=== PATIENT | female | born 1935 | race Caucasian/White ===

== ENCOUNTER → 2017-10-09 | Outpatient (CLI) | payer MEDICARE, OTHER ==
[~2017-10-09] MED LIST: ACET500T68 PO; ALE70 PO; ALP5 PO; ALPR-460 PO; AMLO-1 PO; AMLO-96 PO; ASCO-188 PO; ASP81 PO; ASPI-1471 PO; ASPI81TA94 PO; BLOO-1764 MC; CALC500T42 PO; CEP250 PO; CEPH-13 PO; CEPH250C11 PO; CHOL10005 PO; CHOL200074 PO; CIPR-344 PO; CRAN400T5 PO; ELESTATPT OD; ELESTATPT OP; FAMO20TA28 PO; FLU IM; FLU20 PO; FLU45SYR17 IM; FLU45SYR25 IM ONLY; FLU60SYR30 IM ONLY; FLUO-177 PO; HYDR-2966 PO; HYDR-385 PO; IBUP600T22 PO; ISRA5CAP PO; KETO5DRO OP; KETO5DRO13 OP; LEV88 PO; LEVO88TA45 PO; LOS50 PO; METF-411 PO; METXR500 PO; MULT-820 PO; MULT-865 PO; NITR50CA35 PO; OMEG-11 PO; OMEG500C5 PO; OXYB-13 PO; PHEN-530 PO; PNEU0.5D3 IM; POTA20TA85 PO; POTA20TA94 PO; SIMV-42 PO; SIMV-49 PO; SYSTANEPT OP; SYSTANEPT OU; VALS-25 PO; VALS1TAB6 PO; VITA-200 PO; VITA200C44 PO
[2017-10-09 10:11] LABS: LDL CHOLESTEROL 55 mg/dl
== END ==
LOC: LAB 09:16
PROVIDERS: ATTEND Internal Medicine
DX: E78.00 Pure hypercholesterolemia, unspecified (principal); E11.9 Type 2 diabetes mellitus without complications; I10 Essential (primary) hypertension; E03.9 Hypothyroidism, unspecified
CPT/HCPCS: 36415; 82040; 82247; 82310; 82374; 82435; 82465; 82565; 82947; 83036; 83718; 84075; 84132; 84155; 84295; 84443; 84450; 84460; 84478; 84520

== ENCOUNTER → 2017-12-10 | Outpatient (CLI) | payer MEDICARE, OTHER ==
[~2017-12-10] MED LIST changes: +AMLO-111 PO; -AMLO-96 PO; +CYAN50008 PO; +LOSA-54 PO; -METF-411 PO; +METF-450 PO
--- NOTE | 2017-12-10 14:01 | RADIOLOGY IMAGING REPORT ---
FACILITY: [facility] - [place] PATIENT NAME: Tasia Sanders : 1935 MR: [id number] V: [id number] EXAM DATE: ORDERING PHYSICIAN: SHELLEY PATEL TECHNOLOGIST: Location: [facility] [place] Patient: Tasia Sanders : 1935 Visit/Account:[id number] Date of Sevice: 12/10/2017 DEXA Scan Clinical history: Post menopause. Comparison: DEXA scan from 09/10/2013. LUMBAR SPINE: The bone mineral density (BMD) measured from L1-L4 correlates with a Z-score of 1.7 and a T-score of -0.2 which is NORMAL as defined by the World Health Organization. The corresponding risk of fracture in the lumbar spine is Not increased compared with a young adult reference population. This value h as increased by 2.0 percent since the prior study. More than 5 percent change is considered signific ant. HIP: Femoral Neck: Bone mineral density (BMD) measured in the LEFT femoral neck region correlates with a Z-score 0.7 and a T-score of -1.6 which is osteopenia as defined by the World Health Organization. The correspondin g risk of fracture in the hip is 3-4 times greater compared to a young adult reference population. B one mineral density (BMD) measured in the Femoral Neck region measures 0.809 g/cm2. Total Hip: Bone mineral density (BMD) measured in the LEFT total hip region correlates with a Z-score 0.8 and a T-score of -1.4 which is osteopenia as defined by the World Health Organization. The corresponding r isk of fracture in the hip is 2-3 times greater compared to a young adult reference population. This value has decreased by 7.0 percent since the prior study. More than 5 percent change is considered s ignificant. IMPRESSION: 1. Lumbar spine: Normal. There has been No significant change in the bone mineral density since the previous exam. 2. Left femoral neck and total hip: Osteopenia. There has been a significant decrease in the bone m ineral density of the total hip since the previous exam. The next DEXA scan of this patient should include the following sites: L1-L4 and the left hip. FRAX WHO Fracture Risk Assessment Tool link: <http://www.shef.ac.uk/FRAX/tool.jsp?[email or web address]> PLEASE NOTE: 1) The World Health Organization defines low BMD as follows: T-score Normal > -1 Osteopenia < -1 and > -2.5 Osteoporosis < -2.5 without fractures Established osteoporosis < -2.5 with fractures 2) In general, you may wish to consider: Diagnosis Treatment Follow-up DEXA Normal BMD Prevention 2-3 years Osteopenia Prevention/therapy 1-2 years Osteoporosis Therapy Yearly 3) Fracture risk estimated from the T-score is more accurate for vertebral fractures (often spontane ous) than for hip fractures. Report Dictated By: Camila Lizarraga MD at 12/10/2017 1:53 PM Report E-Signed By: Camila Lizarraga MD at 12/10/2017 1:57 PM WSN:[id number]
--- NOTE | 2017-12-10 16:05 | RADIOLOGY IMAGING REPORT ---
FACILITY: [facility] PATIENT NAME: JONO URIARTE : [id number] MR: [id number] V: [id number] EXAM DATE: [id number] ORDERING PHYSICIAN: SHELLEY PATEL TECHNOLOGIST: Franchesca Wolf PROCEDURE:BILATERAL DIGITAL SCREENING MAMMOGRAM WITH CAD ASSISTED INTERPRETATION & 3D TOMOSYNTHESIS COMPARISON:Prior mammogram 09/10/13. INDICATIONS:SCREENING FINDINGS: Moderately heterogeneous fibroglandular tissue is seen throughout the breasts. The parenchymal pattern has remained stable allowing for difference in mammographic technique & patient positioning. There is no evidence of malignant appearing mass, malignant appearing calcifications or other secondary sign of malignancy in either breast. DIAGNOSTIC CATEGORY 1--NEGATIVE. RECOMMENDATIONS: ROUTINE MAMMOGRAM AND CLINICAL EVALUATION. IMPRESSION: BIRADS 1: Negative. No significant abnormality is seen. Dictated by: Becky Brumfield M.D. on 12/10/2017 at 14:31 Transcribed by: MELINDA on 12/10/2017 at 14:39 Approved by: Becky Brumfield M.D. on 12/10/2017 at 16:04 [facility]
== END ==
LOC: MAMO 01:09
PROVIDERS: ATTEND Internal Medicine
DX: Z12.31 Encounter for screening mammogram for malignant neoplasm of breast (principal); M85.80 Other specified disorders of bone density and structure, unspecified site
CPT/HCPCS: 77063; 77067; 77080

== ENCOUNTER → 2018-02-25 | Outpatient (CLI) | payer MEDICARE, OTHER ==
[2018-02-25 10:21] LABS: LDL CHOLESTEROL 69 mg/dl
== END ==
LOC: LAB 09:39
PROVIDERS: ATTEND Internal Medicine
DX: E03.9 Hypothyroidism, unspecified (principal); E11.9 Type 2 diabetes mellitus without complications; E78.00 Pure hypercholesterolemia, unspecified; I10 Essential (primary) hypertension
CPT/HCPCS: 36415; 82040; 82247; 82310; 82374; 82435; 82465; 82565; 82947; 83036; 83718; 84075; 84132; 84155; 84295; 84443; 84450; 84460; 84478; 84520

== ENCOUNTER → 2018-08-01 | Outpatient (CLI) | payer MEDICARE, OTHER ==
[~2018-08-01] MED LIST changes: -AMLO-111 PO; +AMLO-125 PO; +FLU60VIA41 IM; +VARI50KI IM
== END ==
LOC: LAB 15:39
PROVIDERS: ATTEND Nurse Practitioner Family
DX: E03.9 Hypothyroidism, unspecified (principal); E11.9 Type 2 diabetes mellitus without complications; E78.00 Pure hypercholesterolemia, unspecified; I10 Essential (primary) hypertension
CPT/HCPCS: 36415; 82040; 82247; 82310; 82374; 82435; 82565; 82947; 83036; 84075; 84132; 84155; 84295; 84443; 84450; 84460; 84520